=== PATIENT | male | born 1965 | race Caucasian/White ===

== ENCOUNTER 2019-04-29 10:41 | Outpatient (CLI) | payer OTHER ==
[~2019-04-29] VITALS: Ht 182.9 cm; Wt 106.8 kg
--- NOTE | ~2019-04-29 | HEMODYNAMI ---
PATIENT:BASHIR KIRKLAND MEDICAL RECORD: [id number] : [birth year] [id number] ADMISSION DATE: 04/29/19 Generatedon:04/29/201915:00 Patient name: BASHIR KIRKLAND Patient #: [id number] SSN: : 1965 Date of study: 04/29/2019 Page: Of Hemodynamic Procedure Report Patient Data Patient Demographics Procedure consent was obtained First Name: BASHIR Gender: Male Last Name: ISAEL : 1965 Patient #: [id number] Age: 53 year(s) Race: Additional ID: [id number] Contact details Address: [address] [place] [address] State: [place] City: [place] Zip code: [address] Past Medical History Allergies: No known allergies Admission Admission Data Admission Date: 04/29/2019 Admission Time: 10:41 Arrival Date: 04/29/2019 Arrival Time: 0:00 Admit Source: Other Insurance Payor: Private health insurance [facility] #: [id number] Lab Results Lab Result Date: 04/29/2019 Lab Result Time: 11:10 Biochemistry Name Units Result Min Max BUN mg/dl 14 --(--*-)-- 7 18 Creatinine mg/dl 1.1 --(--*-)-- 0.6 1.3 CBC Name Units Result Min Max Hematocrit % 45 --(*---)-- 42 54 Hemoglobin g/dl 15.5 --(-*--)-- 13.5 17.5 Procedure Procedure Types Cath Procedure Diagnostic Procedure C LH w/Coronaries Sedation Charges Moderate Sedation up to 15 minutes Procedure Description Procedure Date Procedure Date: 04/29/2019 Procedure Start Time: 14:35 Procedure End Time: 14:59 Procedure Staff Name Function Francis Gaitan MD Performing Physician Kody Arevalo RT Monitor Magaly Wells RT Scrub Dina Colon RN Nurse Indication Abnormal ECG Procedure Data Cath Procedure Fluoroscopy Diagnostic fluoroscopy Total fluoroscopy Time: 2.7 time: 2.7 min min Diagnostic fluoroscopy Total fluoroscopy dose: 801 dose: 801 mGy mGy Contrast Material Contrast Material Type Amount (ml) Isovue 300 57 Entry Location Entry Primary Successful Side Size Upsize Upsize Entry Closure Martino ccessful Closure Location (Fr) 1 (Fr) 2 (Fr) Remarks Device Remarks Radial Right 6 Fr Mechanical artery Short Compression Estimated blood loss: 10 ml Diagnostic catheters Device Type Used For End Catheter Placement DIAGNOSTIC Samir 110cm Procedure 5Fr catheter ([id number]) DIAGNOSTIC [place] 110cm 5 Procedure Fr catheter ([id number]) Procedure Complications No complications Procedure Medications Medication Administration Route Dosage Oxygen etCO2 Nasal cannula 2 l/min Lidocaine 2% added to field 20 Heparin Flush Bag added to field 2 bags (1000units/500ml NS) 0.9% NaCl I.V. 100 ml/hr Radial Cocktail I.A. 1 syringe (Verapamil 2mg/Nitro 400mcg/Heparin 1500units) Versed I.V. 2 mg Fentanyl I.V. 100 mcg Versed I.V. 2 mg Hemodynamics Rest HGB: 15.5 (g/dl) Heart Rate: 44 (bpm) Pressure Samples Time Site Value (mmHg) Purpose Heart Use Rate(bpm) 14:42 LV 121/-3,14 Snapshot 57 Gradients Valve Time Site Site Mean SEP/DFP Peak To Heart Use 1 2 (mmHg) (sec/min) Peak Rate (mmHg) (bpm) Aortic 14:43 LV AO 35 Snapshots Pre Cath Intra NCS Post Cath Vital Signs Time Heart Resp SPO2 etCO2 NIBP (mmHg) Rhythm Pain Sedation Rate (ipm) (%) (mmHg) Status Level (bpm) 14:26:01 53 13 95 35.1 135/95(109) NSR 0 (11) 10(A) , No pain 14:31:39 58 10 97 26.9 116/70(84) NSR 0 (11) 10(A) , No pain 14:36:38 54 11 97 31.4 124/82(0) NSR 0 (11) 10(A) , No pain 14:41:12 55 12 96 34.4 132/75(108) NSR 0 (11) 10(A) , No pain 14:46:11 61 14 94 38.1 128/74(0) NSR 0 (11) 10(A) , No pain 14:51:11 58 11 95 24.6 Auto NIBP NSR 0 (11) 10(A) off , No pain 14:56:10 52 18 97 35.9 139/72(0) NSR 0 (11) 10(A) , No pain 14:57:29 55 15 95 27.6 128/81(95) NSR 0 (11) 10(A) , No pain Medications Time Medication Route Dose Verified Delivered Reason Notes Effectiveness by by 14:24:52 Oxygen etCO2 2 l/min Francis Buffie used for Nasal Arnie Colon RN procedure cannula 14:25:43 Lidocaine 2% added 20ml Francis Francis for local to vial Arnie Gaitan MD anesthetic field 14:25:51 Heparin Flush added 2 bags Francis Francis used for Bag to Arnie Gaitan MD procedure (1000units/500ml field NS) 14:26:06 0.9% NaCl I.V. 100 Francis Buffie Per ml/hr Arnie Colon RN physician 14:27:05 Radial Cocktail I.A. 1 Francis Buffie for (Verapamil syringe Arnie Colon RN vasodilation 2mg/Nitro 400mcg/Heparin 1500units) 14:30:34 Versed I.V. 2 mg Francis Buffie for sedation Arnie Colon RN 14:30:41 Fentanyl I.V. 100 mcg Francis Buffie for sedation Arnie Colon RN 14:44:58 Versed I.V. 2 mg Francis Buffie for sedation Arnie Colon RN Procedure Log Time Note 14:00:46 Magaly Wells RT(R) sent for patient. Start room use. 14:05:17 Informed consent obtained and on chart 14:10:50 Admit Source: Other 14:10:58 Insurance Payor : Private health insurance 14:11:19 Arrival Date: 04/29/2019 12:00:00 AM 14:13:01 Lab Result : Hemoglobin 15.5 g/dl 14:13:01 Lab Result : Hematocrit 45 % 14:13:01 Lab Result : BUN 14 mg/dl 14:13:01 Lab Result : Creatinine 1.1 mg/dl 14:13:26 Diagnostic Cath Status : Elective 14:13:29 Indication : Abnormal ECG 14:13:38 ACC Patient presents with Stable Angina CCS Anginal Class 3--Marked limitation of physical activity, angina occurs with ordinary activity.. 14:13:42 ACCPatient has been prescribed/administered the following anti-anginal medication within the last 2 weeks: None 14:13:45 Procedure Status Elective Heart Cath (OP). 14::51 Time tracking: Regular hours (M-F 7:00 - 5:00) 14:13:55 Plan of Care:Hemodynamics will remain stable., Cardiac rhythm will remain stable., Comfort level will be maintained., Respiratory function will remain adequate., Patient/ family verbilizes understanding of procedure., Procedure tolerated without complication., Recovers from procedure without complications.. 14:13:59 Patient received from Pre/Post Procedure Room to CCL 1 Alert and oriented. Tansferred to table in Supine position. 14:14:00 Warm blankets applied, and kobe hugger turned on for patient comfort. 14:14:00 Correct patient and procedure confirmed by team. 14:14:01 ECG and BP/O2 sat monitors applied to patient. 14:14:11 H&P Date Dictated: 04/10/2019 Within 30 days and on chart., H&P Addendum completed by physician on day of procedure. (MUST COMPLETE FOR ALL OUTPATIENTS). 14:14:13 Pre-procedure instructions explained to patient. 14:14:13 Pre-op teaching completed and patient verbalized understanding. 14:14:14 Family in waiting room. 14:14:16 Patient NPO since Breakfast. 14:14:21 Patient allergic to No known allergies 14:24:52 Oxygen 2 l/min etCO2 Nasal cannula was administered by Dina Colon RN; used for procedure; 14:24:54 Vital chart was started 14:25:43 Lidocaine 2% 20ml vial added to field was administered by Francis Gaitan MD; for local anesthetic; 14:25:47 Baseline sample Acquired. 14:25:51 Heparin Flush Bag (1000units/500ml NS) 2 bags added to field was administered by Francis Gaitan MD; used for procedure; 14::55 Baseline sample Acquired. 14::59 Rhythm: sinus rhythm 14:26:00 Full Disclosure recording started 14:26:03 Is the patient allergic to Iodine/contrast media? No. 14:26:04 Is patient on blood thinner?No 14:26:05 Patient diabetic? No. 14:26:06 0.9% NaCl 100 ml/hr I.V. was administered by Dina Colon RN; Per physician; 14:26:10 Previous problem with sedation/anesthesia? No ? 14:26:12 Snore? Yes 14:26:13 Sleep apnea? Yes 14:26:14 Deviated septum? No 14:26:15 Opens mouth fully? Yes 14:26:15 Sticks out tongue? Yes 14:26:17 Airway obstruction? No ? 14:26:20 Dentures? Yes bottom out 14:26:55 Pre procedure: right dorsailis pedis pulse 2+ Normal; easily identifiable; not easily obliterated 14:26:59 Patient pain scale 0/10 ?. 14:27:05 Radial Cocktail (Verapamil 2mg/Nitro 400mcg/Heparin 1500units) 1 syringe I.A. was administered by Dina Colon RN; for vasodilation; 14:27:47 IV patent on arrival in left antecubital with 0.9% NaCl at [facility]. 14:28:14 Lab results completed and on chart. 14:28:19 Right Radial & Right Groin area was prepped with chlora-prep and draped in sterile fashion 14:28:20 Alarms reviewed by R. N. 14:28:21 Sharps counted by scrub and verified by R.N. 14:28:23 Use device set Radial Dx or PCI 14:28:24 ACIST Syringe (67138) opened to sterile field. 14:28:24 Medline Cath Pack ([id number]) opened to sterile field. 14:28:25 Bag Decanter (2002) opened to sterile field. 14:28:25 ACIST Hand Control (13406) opened to sterile field. 14:28:25 ACIST Manifold (60476) opened to sterile field. 14:28:26 Tegaderm 4 x 4 (1626W) opened to sterile field. 14:28:26 MBrace Wrist Support ([id number]) opened to sterile field. 14:28:28 EMERALD Guide Wire (190-086) opened to sterile field. 14:28:28 SHEATH 6FR RAIN (9423262) opened to sterile field. 14:28:35 Physician arrived 14:28:35 Final Timeout: patient, procedure, and site verified with staff and physician. All members of the team are in agreement. 14:28:37 Right Radial & Right Groin site verified by team. 14:28:44 Fire Safety Assessment: A--An alcohol-based skin anteseptic being used preoperatively., C--Open oxygen or nitrous oxide is being used., D--An ESU, laser, or fiber-optic light is being used. 14:28:47 Physical assessment completed. ASA score P 2 - A patient with mild systemic disease as per Francis Gaitan MD. 14:29:11 2) 60-89 Mildly reduced kidney function, and other findings (as for stage 1) point to kidney disease. 14:30:12 Maximum allowable contrast dose (3.7 X eGFR X 0.75)208 ml. 14:30:14 Sedation plan: IV Moderate Sedation Medication:Versed, Fentanyl 14:30:34 Versed 2 mg I.V. was administered by Dina Colon RN; for sedation; 14:30:41 Fentanyl 100 mcg I.V. was administered by Dina Colon RN; for sedation; 14:33:15 NEEDLE Cook 21G 4cm Radial (I78194) opened to sterile field. 14:33:28 Zero performed for pressure channel P1 14:35:18 Procedure started. 14:35:23 Local anesthetic to right radial artery with Lidocaine 2% by Francis Gaitan MD.INITIAL ACCESS ONLY 14:35:32 A 6 Fr Short sheath was inserted into the Right Radial artery 14:37:45 Zero performed for pressure channel P1 14:41:17 A DIAGNOSTIC Samir 110cm 5Fr catheter (695206) was advanced over the wire and used for Procedure. 14:41:59 LV hemodynamics recorded. 14:42:32 LV gram done using SRINIVASAN 14:42:35 Injector settings: Ml/sec: 5, Volume: 15, 14:42:53 EF : 50 % 14:44:01 RCA angiography performed. 14:44:04 Catheter exchanged over wire. 14:44:12 A DIAGNOSTIC [place] 110cm 5 Fr catheter (009433) was advanced over the wire and used for Procedure. 14:44:58 Versed 2 mg I.V. was administered by Dina Colon RN; for sedation; 14:45:27 ACCDominant side:Right 14:46:01 LCA angiography performed. 14:54:53 Catheter removed. 14:55:06 ZEPHYR REGULAR TR BAND (852945) opened to sterile field. 14:55:25 Sheath removed intact; hemostasis achieved with Mechanical Compression to the Right Radial artery. 14:56:37 Procedure ended.(Physican Out) 14:57:05 Fluoroscopy time 02.70 minutes. 14:57:08 Fluoroscopy dose: 801 mGy 14:57:08 Flurop Dose total: 801 14:57:16 Dose Area Product 67334 mGy/cm. 14:57:22 Contrast amount:Isovue 300 57ml. 14:57:24 Maximum allowable dose exceeded? No. 14:57:26 Sharps counted by scrub and verified by R.N. 14:57:30 [place] band inflated with 12cc of air. 14:57:31 Insertion/operative site no bleeding no hematoma. 14:57:43 Post right radial artery:stable, soft, clean and dry 14:57:46 Post Procedure Pulses reassessed and unchanged 14:57:50 Post-procedure physical assessment completed. ASA score P 2 - A patient with mild systemic disease as per Francis Gaitan MD. 14:57:53 Post procedure rhythm: unchanged. 14:58:02 Estimated blood loss: 10 ml 14:58:03 Post procedure instruction explained to patient.Patient verbalizes understanding. 14:58:04 Patient needs reinforcement of post procedure teaching. 14:58:26 Procedure type changed to Cath procedure, Diagnostic procedure, LHC, LHC w/Coronaries, Sedation Charges, Moderate Sedation up to 15 minutes 14:58:54 Procedure and supply charges have been captured, reviewed, submitted and are correct. 14:58:57 Procedure Complication : No complications 14:58:59 Vital chart was stopped 14:59:00 See physician's report for complete and final results. 14:59:01 Report given to Pre/Post Procedure Room. 14:59:03 Patient transfered to Pre/Post Procedure Room with Stretcher. 14:59:07 Procedure ended. 14:59:07 Full Disclosure recording stopped 14:59:16 End room use (Document Last) Device Usage Item Name Manufacture Quantity Catalog Hospital Part Current Minima l Lot# / Number Charge Number Stock Stock Serial# Code ACIST Acist 1 85741 313026 252450 445393 20 Syringe [employer] (84288) Quantifeed Inc Medline Medline 1 [id number] 720102 40661 001921 5 Cath Pack ([id number]) Bag Microtek 1 758181 54579 536481 5 Decanter Medical Inc. () ACIST Hand Acist 1 74748 572400 736842 598736 5 Control Medical (66793) Systems Inc ACIST Acist 1 31410 748240 179500 329761 5 Manifold Medical (88012) Systems Inc Tegaderm 4 3M 1 1626W 542564 283186 686816 5 x 4 (1626W) MBrace Advanced 1 140-0250-00 410069 33947 753071 5 Wrist Vascular Support Dynamics ([id number]) EMERALD Cardinal 1 642-838 928190 887939 680321 5 Guide Wire Health (115-591) SHEATH 6FR Cardinal 1 5304738 244625 9778893 285567 5 [facility] Health (6294575) NEEDLE Cook Cook Medical 1 D01406 486061 405036 611873 5 21G 4cm Radial (T44054) DIAGNOSTIC Terumo 1 40-5023 280478 132912 330955 5 Samir 110cm 5Fr catheter (916329) DIAGNOSTIC Terumo 1 40-5013 582500 755880 247230 5 [place] 110cm 5 Fr catheter (641730) ZEPHYR Cardinal 1 157670 893384 9537691 618467 5 REGULAR TR Health BAND (399088) Signature Audit [place] Stage Time Signature Unsigned Intra-Procedure 04/29/2019 Kody Arevalo 3:00:11 PM RT(R) Signatures Performing Physician : Signature : Francis Gaitan MD Date : Time : Monitor : Kody Arevalo RT Signature : Date : Time : Nurse : Dina Colon RN Signature : Date : Time : [address] [address] [place] [address]
[2019-04-29] MEDS ORDERED: CO Q-10200 MG PO (10:57)
[2019-04-29] MEDS ORDERED: CRESTOR20 MG PO (10:57)
[2019-04-29] MEDS ORDERED: PEPCID AC20 MG PO (10:58)
[2019-04-29 11:08] VITALS: BP 159/84; Ht 182.9 cm; Wt 106.8 kg
[2019-04-29 11:22] LABS: HEMOGLOBIN 15.5 g/dL (13.5-17.5); LYMPHOCYTES 29.3 % (15-50); MCH 32.2 pg (26.0-34.0); MCHC 34.4 g/dL (31.0-37.0); MCV 93.6 fL (80.0-100.0); MEAN PLATELET VOLUME 10.2 fL (7.4-10.4); NEUTROPHILS 61.8 % (40-80); PLATELET COUNT 195 10x3/uL (130-400); RBC 4.81 10x6/uL (4.20-6.10); RDW 12.8 % (11.5-14.5); WBC 9.4 10x3/uL (4.8-10.8)
[2019-04-29 11:49] LABS: ALT (SGPT) 32 U/L (10-68); CALC OSMOLALITY 276 mosm/kg (275-300); CALCIUM 8.8 mg/dL (8.5-10.1); CARBON DIOXIDE 28.3 mmol/L (21.0-32.0); CHLORIDE - SERUM 105 mmol/L (98-107); CHOL - HDL RATIO 3.5 ratio (2.3-4.9); CHOLESTEROL, TOTAL 152 mg/dL (0-200); CREATININE - SERUM 1.1 mg/dL (0.6-1.3); GLUCOSE 98 mg/dL (74-106); HDL CHOLESTEROL 44 mg/dL (32-96); LDL CHOLESTEROL 85 mg/dL (0-100); LDL-HDL RATIO 1.9 ratio (1.5-3.5); SODIUM 138 mmol/L (136-145); TRIGLYCERIDE 118 mg/dL (30-200); UREA NITROGEN 14 mg/dL (7-18); eGFR NON AFRICAN AMERICAN 75 mL/min (90-120)
--- NOTE | 2019-04-29 15:08 | NUR ---
PT ARRIVED BY STRETCHER. PLACED ON MONITORS. ASSESSMENT COMPLETED. VSS. PT'S FAMILY AT BEDSIDE.
--- NOTE | 2019-04-29 15:20 | NUR ---
DR. BARRIOS AT BEDSIDE. SPEAKING WITH PT AND PT'S FAMILY. THEY VOICED UNDERSTANDING. RIGHT WRIST Z BAND IN PLACE. NO BLEEDING/HEMATOMA NOTED.
--- NOTE | 2019-04-29 15:50 | NUR ---
RIGHT WRIST Z BAND IN PLACE. NO BLEEDING/HEMATOMA NOTED. VSS. PT SITTING UP. DENIES PAIN/NAUSEA. SET UP WITH SANDWICH TRAY AND DRINK. FAMILY AT BEDSIDE.
--- NOTE | 2019-04-29 16:30 | NUR ---
3cc OF AIR REMOVED FROM RIGHT RADIAL BAND. NO BLEEDING/HEMATOMA NOTED. VSS. FAMILY AT BEDSIDE CALL LIGHT WITHIN REACH. CAP REFILL TO RIGHT HAND < 3 SECS.
--- NOTE | 2019-04-29 16:45 | NUR ---
3cc OF AIR REMOVED FROM Z BAND. TOLERATED WELL. NO BLEEDING/HEMATOMA NOTED.
--- NOTE | 2019-04-29 17:00 | NUR ---
3cc OF AIR REMOVED FROM Z BAND. NO BLEEDING/HEMATOMA NOTED.
--- NOTE | 2019-04-29 17:10 | NUR ---
Z BAND REMOVED. DRESSING APPLIED. NO BLEEDING/HEMATOMA NOTED. PIV D/C'D WITH CATH TIP INTACT. PT TOLERATED WELL. INSTRUCTED TO GET UP AND DRESSED. FAMILY AT BEDSIDE TO ASSIST.
--- NOTE | 2019-04-29 17:22 | NUR ---
DISCUSSED DISCHARGE INSTRUCTIONS WITH PT AND DIRECTIONS FOR FOLLOW UP WITH DR. MAZARIEGOS TOMORROW AT 15:15. GAVE THEM INFO BOOK ON OPEN HEART SURGERY ALONG WITH A CARD FOR DR. MAZARIEGOS'S OFFICE INFORMATION. THEY VOICED UNDERSTANDING.
--- NOTE | 2019-04-29 17:25 | NUR ---
RIGHT WRIST DRESSING C/D/I. NO S/S OF HEMATOMA NOTED. PT TAKEN OUT TO VEHICLE BY WHEELCHAIR. NO S/S OF DISTRESS NOTED. ALL BELONGINGS AND PAPEROWORK IN HAND.
== END 2019-04-29 17:25 | disposition home or self-care (01) ==
LOC: D.CATH 10:41
PROVIDERS: ATTEND Internal Medicine Cardiovascular Disease
DX: I25.110 Atherosclerotic heart disease of native coronary artery with unstable angina pectoris (principal)

== ENCOUNTER 2019-06-24 10:08 | Inpatient (IN) | payer OTHER ==
[~2019-06-24] VITALS: Ht 182.9 cm; Wt 107.9 kg
[~2019-06-24 10:08] MED LIST: CO Q-10200 MG PO; CRESTOR20 MG PO; PEPCID AC20 MG PO
[2019-06-24] MEDS ORDERED: BAYER CHEWABLE81 MG PO (11:26)
[2019-06-24 12:35] LABS: BASOPHILS 0.3 % (0-2); EOSINOPHILS 1.7 % (0-7); HEMATOCRIT 47.9 % (42.0-54.0); HEMOGLOBIN 16.1 g/dL (13.5-17.5); IMMATURE GRANULOCYTES 0.1 % (0-5); LYMPHOCYTES 31.3 % (15-50); MCH 32.7 pg (26.0-34.0); MCHC 33.6 g/dL (31.0-37.0); MCV 97.4 fL (80.0-100.0); MEAN PLATELET VOLUME 10.9 fL (7.4-10.4); MONOCYTES 8.7 % (2-11); NEUTROPHILS 57.9 % (40-80); RBC 4.92 10x6/uL (4.20-6.10); RDW 13.2 % (11.5-14.5); WBC 8.8 10x3/uL (4.8-10.8)
[2019-06-24 12:42] LABS: PLATELET COUNT 236 10x3/uL (130-400)
[2019-06-24 12:47] LABS: APPEARANCE CLEAR (CLEAR); BILIRUBIN NEGATIVE (NEGATIVE); COLOR YELLOW (YELLOW); GLUCOSE NEGATIVE (NEGATIVE); KETONE NEGATIVE (NEGATIVE); NITRITE NEGATIVE (NEGATIVE); PROTEIN NEGATIVE (NEGATIVE); SPECIFIC GRAVITY 1.015 (1.005-1.020)
[2019-06-24 12:56] LABS: APTT 28.5 SECONDS (22.8-39.4)
[2019-06-24 12:57] LABS: ALBUMIN 3.9 g/dL (3.4-5.0); ANION GAP 11.3 mmol/L (8-16); BILIRUBIN - TOTAL 0.47 mg/dL (0.2-1.3); CALCIUM 9.2 mg/dL (8.5-10.1); CARBON DIOXIDE 28.9 mmol/L (21.0-32.0); CREATININE - SERUM 1.2 mg/dL (0.6-1.3); POTASSIUM - SERUM 4.2 mmol/L (3.5-5.1); PROTEIN - SERUM 7.8 g/dL (6.4-8.2); T4 THYROXIN - FREE 0.87 ng/dL (0.76-1.46); THYROID STIMULATING HORMONE 3.78 uIU/mL (0.36-3.74); URIC ACID 7.1 mg/dL (2.6-7.2)
[2019-06-24 13:12] LABS: INR 0.93 (0.85-1.17)
[2019-06-25] VITALS (47 sets, daily range): BP systolic 102–131; BP diastolic 44–77; BMI 31.4; BMI 33.4
--- NOTE | 2019-06-25 12:45 | NUR ---
PT ARRIVED IN THE UNIT. HOOKED TO ICU MONITORS. PT SEDATED AND ON THE VENTILATOR. 8.0 ETT 24 AT THE LIP. RIGHT IJ CORDIS NOTED. SEE IV FLOW SHEET FOR GTTS. MIDSTERNAL INCISION NOTED C/D/I. SUBSTERNAL DRESSING C/D/I WITH 2 CT'S NOTED CONNECTED TO 20 OF H2O SUCTION WITH NO AIR LEAK NOTED. LEFT SUBSTERNAL CHARLOTTE DRAIN NOTED COMPRESSED. ALL DRAINS HAVE BLOODY DRAINAGE. R RADIAL JOSEP NOTED WITH THE WITH WRIST PROTECTOR ON AND IN PLACE. CAP REFILL <3 SECONDS. TPM WIRES HOOKED TO PACEMAKER BUT NOT TURNED ON PER DR MAZARIEGOS. FC NOTED WITH CLEAR, YELLOW URINE. RLE HARVEST NOTED WITH KOBAN FROM ANKLE TO GROIN. PULSES PALPABLE. VSS AT THIS TIME. CALL LIGHT IN REACH. WILL CONT POC.
--- NOTE | 2019-06-25 13:00 | NUR ---
PIECE HAND SHOT CXR. DR MAZARIEGOS REVIEWED IT. NO NEW ORDERS AT THIS TIME.
--- NOTE | 2019-06-25 14:32 | NUR ---
PT EASILY AROUSABLE AND FOLLOWS COMMANDS BUT WILL ALMOST FALL BACK TO SLEEP. VSS. WILL CONT POC.
--- NOTE | 2019-06-25 16:25 | NUR ---
PT CHANGED TO SPONT PER RT. PT RESP RATE 40 TITAL VOL 75-100. PER RT CHANGED BACK TO SIMV AND DR MAZARIEGOS NOTIFIED. SEDATE THE PT WITH DIPROVAN AND CONSULT PULMONARY. DR HOOD CALLED AND MADE AWARE OF THE CONSULT.
--- NOTE | 2019-06-25 16:45 | NUR ---
DR HOOD AT THE PTS BEDSIDE WITH THE FAMILY. REST THE PT OVER NIGHT AND WEEN IN THE AM IF STABLE.
--- NOTE | 2019-06-25 18:38 | NUR ---
PT VSS. RESTING WITH EYES CLOSED. CALL LIGHT IN REACH. WILL CONT POC.
--- NOTE | 2019-06-25 19:32 | NUR ---
PT RECEIVED SEDATUDED ON VENT A/C RATE 14, TV 650, O2 40%, PEEP 5. RIGHT IJ WITH PLASMALYTE 100, DIPROVAN 20MCG/KG/MIN, AMIODARONE 0.5MG/MIN, ZINACEF 11.4ML/HR. PT SEDATED AND AWAKENS TO VERBAL STIMULI, TOLERATING WELL. VSS. CHARLOTTE DRAIN COMPRESSED WITH BLOODY DRAINAGED NOTE. CHEST TUBE X2 PATENT, MCDOWELL PATENT WITH WAYNE URINE. DRESSINGS TO MIDSTERNAL, SUBSTERNAL, AND RIGHT LEG C/D/I. WILL CONTINUE TO OBSERVE.
--- NOTE | 2019-06-25 21:43 | NUR ---
PT CONTINUES SEDATION, OPENS EYES UPON VERBAL STIMULI. NO S/S OF DISTRESS. VSS. GOOD URINARY OUTPUT AT THIS TIME. CHEST TUBES TO SUCTION WITHOUT LEAK. NO EXCESSIVE DRAINAGE NOTED. CHARLOTTE DRAIN COMPRESSED. WILL CONTINUE TO OBSERVE.
--- NOTE | 2019-06-25 23:03 | NUR ---
PT SEDATED OPENS EYE ON OWN AT TIMES. NO S/S OF DISTRESS. MCDOWELL WITH GOOD OUTPUT. CHEST TUBES DRAINING BLOODY DRAINAGE NOT EXCESSIVE. VSS. NO CHANGES TO VENT. WILL CONTINUE TO OBSERVE.
[2019-06-26] VITALS (47 sets, daily range): BP systolic 109–139; BP diastolic 56–76; Ht 182.9 cm; Wt 107.9 kg
--- NOTE | 2019-06-26 01:50 | NUR ---
SUBSTERNAL DRESSING CHANGED. TPM X2 CONNECTED TO TPM, TURNED OFF, BIOPATCHED TO WIRES. NO BLEEDING NOTED. WILL CONTINUE TO OBSERVE. REMAINS ON VENT WITH NO CHANGES TO SETTINGS. PT SEDATED, BUT OPENS EYES AND ANSWERS QUESTIONS BY NODDING HEAD.
--- NOTE | 2019-06-26 03:25 | NUR ---
PT SEDATED, OPENS EYES TO STIMULI. ANSWERS QUESTIONS BY NODDING HEAD. VSS. NO S/S OF DISTRESS. WILL CONTINUE TO OBSERVE.
--- NOTE | 2019-06-26 05:17 | NUR ---
BLOOD DRAWN AND SENT TO LAB.
[2019-06-26 05:28] LABS: BASOPHILS 0.1 % (0-2); EOSINOPHILS 0.1 % (0-7); HEMATOCRIT 39.2 % (42.0-54.0); IMMATURE GRANULOCYTES 0.3 % (0-5); LYMPHOCYTES 11.2 % (15-50); MCHC 32.7 g/dL (31.0-37.0); MONOCYTES 13.5 % (2-11); NEUTROPHILS 74.8 % (40-80); RDW 13.8 % (11.5-14.5)
[2019-06-26 05:30] LABS: HEMOGLOBIN 12.8 g/dL (13.5-17.5); PLATELET COUNT 184 10x3/uL (130-400); WBC 15.5 10x3/uL (4.8-10.8)
--- NOTE | 2019-06-26 05:34 | NUR ---
PT BEING MORE ALERT PULLING AGAINST RESTRAINTS AND SOUNDING VENT ALARMS. DIPROVAN RATE INCREASE, SEE FLOW SHEET. WILL CONTINUE TO OBSERVE.
[2019-06-26 05:46] LABS: ALKALINE PHOSPHATASE 46 U/L (46-116); CALC OSMOLALITY 283 mosm/kg (275-300); CALCIUM 7.3 mg/dL (8.5-10.1); CARBON DIOXIDE 27.8 mmol/L (21.0-32.0); CHLORIDE - SERUM 109 mmol/L (98-107); GLUCOSE 129 mg/dL (74-106); PHOSPHOROUS 3.4 mg/dL (2.5-4.9); POTASSIUM - SERUM 4.3 mmol/L (3.5-5.1); SODIUM 141 mmol/L (136-145); UREA NITROGEN 14 mg/dL (7-18); eGFR NON AFRICAN AMERICAN 83 mL/min (90-120)
[2019-06-26 05:55] LABS: ALBUMIN 2.7 g/dL (3.4-5.0); ALT (SGPT) 25 U/L (10-68); PROTEIN - SERUM 5.5 g/dL (6.4-8.2)
--- NOTE | 2019-06-26 08:37 | NUR ---
0730: DR. MAZARIEGOS HERE. CONDITION UPDATE GIVEN 0735: OBINNA KOVACS. 0745: PLACED ON SIMV 4 0800: FAMILY AT BEDSIDE.
--- NOTE | 2019-06-26 09:18 | NUR ---
PLACED ON CPAP.
--- NOTE | 2019-06-26 11:39 | NUR ---
1015: EXTUBATED AND PLACED ON O2 VIA NC @ 6LPM. 1045: UP TO CHAIR. 1125: R RADIAL ARTERIAL LINE DC'D. MANUAL PRESSURE HELD X 5 MIN. DRESSED WITH 2X2 AND TEGADERM.
--- NOTE | 2019-06-26 15:10 | OP ---
PATIENT NAME: BASHIR KIRKLAND MEDICAL RECORD: [id number] :69 LOCATION[id number] ADMISSION DATE:06/25/19 SURGEON: MASSIMO MAZARIEGOS MD DATE OF OPERATION: 06/25/2019 SURGEON: Massimo Mazariegos MD SOCIAL WORKER MASTERS: None. PROCEDURE PERFORMED: Coronary bypass graft times 3 (left internal mammary to LAD, reverse saphenous vein graft from aorta to diagonal and aorta to right coronary artery). PREOPERATIVE DIAGNOSIS: Coronary artery disease. POSTOPERATIVE DIAGNOSIS: Coronary artery disease. ANESTHESIA: General endotracheal anesthesia. ESTIMATED BLOOD LOSS: Total cardiopulmonary bypass with Cell Saver retransfusion. COMPLICATIONS: None. SPECIMENS: None. CONDITION: Stable. DISPOSITION: CV ICU. OPERATIVE FINDINGS: 1. Good quality greater saphenous vein, but the right mid thigh had a large varicosity, so a smaller caliber portion was taken with bridging incisions also from the right lower leg for the diagonal graft. 2. Good quality left internal mammary artery. The LAD was diffusely diseased 2.0-mm vessel. 3. First diagonal 1.5-mm vessel with moderate disease. 4. Right coronary artery 2.5-mm vessel with severe disease. 5. Dilated right ventricle, transesophageal echocardiography with normal contractility. No significant valvular stenosis or regurgitation. DESCRIPTION OF PROCEDURE: The patient was brought to the operating suite. General anesthesia was obtained. The patient was prepped and draped. Greater saphenous vein harvested from the right lower leg and right thigh using bridging incisions. Side branches were divided with clips. The vessel was ligated proximally and distally and removed. Side branches were tied and then sites were oversewn. Leg was later closed in 2 layers including Dermabond on the skin. Median sternotomy incision was made. Subcutaneous tissue was divided by electrocautery. The sternum was divided with a saw. The left hemisternum was elevated. Left lower cavity was entered. Left internal mammary was taken down as a pedicle graft. Sternal retractor was placed. Pericardium was opened. Heparin was given. OPERATIVE REPORT [id number] BASHIR KIRKLANDN Aorta was cannulated. Dual stage venous cannula was inserted. The internal mammary clipped distally and made ready for anastomosis. Activated clotting time was appropriately elevated. The patient was placed on cardiopulmonary bypass. Sites for distal anastomosis were selected. Antegrade cardioplegic cannula was inserted. The patient's temperature was allowed to drift downwardly. Crossclamp was placed. Cardioplegia was given antegrade and this was repeated at 20 intervals including down the completed vein grafts. Distal anastomoses were performed in standard technique. Proximal anastomosis with single cross-clamp technique. Aortic root was de-aired with the patient in Trendelenburg position by removing the cross clamp, venting the root, tying the proximal anastomoses, deairing the vein graft and restoring flow. A single defibrillation. Then, proximal and distal anastomosis inspected for bleeding. A single 6-0 was in the proximal anastomotic site. The patient resumed a spontaneous rhythm, fully rewarmed, weaned from cardiopulmonary bypass and stable. The patient was decannulated. The cannula sites were oversewn. Protamine was given. Thorough irrigation was undertaken. The graft lay appropriately. Hemostasis was assured. A drain was placed in the mediastinum and left pleural cavity. Atrial and ventricular pacing wires were placed. Pericardial fat was loosely reapproximated in the midline. Left chest was evacuated and irrigated. The internal mammary harvest site inspected for bleeding. Sternum was closed with wires. Fascia was closed. Subcutaneous tissue was closed. Skin was closed. Dermabond was placed. The needle and sponge counts reported correct. The patient was taken to ICU in stable condition. TRANSINT:[id number] Voice Confirmation ID: [id number] DOCUMENT ID: [id number] MASSIMO MAZARIEGOS MD at 1510 CC: NORMA BARRIOS M.D. and LEONARDO WINSTON MD [id number] DICTATION DATE: 06/25/19 1259 DIGITAL COORDINATOR: 06/25/19 1328 ADM IN [facility] [address] [id number]
--- NOTE | 2019-06-26 19:20 | NUR ---
PT IN BED WITH EYES OPEN. COMPLAINS OF PAIN WITH PRN PAIN MEDICATION GIVEN PER OCT. CHEST TUBES X2 PATENT. MCDOWELL WITH WAYNE URINE. CHARLOTTE DRAIN COMPRESSED. FRESH DRINK PROVIDED. CALL LIGHT IN DRINK PROVIDED. WILL CONTINUE TO OBSERVE.
--- NOTE | 2019-06-26 20:13 | NUR ---
AT BEDSIDE AT THIS TIME.
--- NOTE | 2019-06-26 20:49 | NUR ---
PT SPO2 DECREASED TO 88, PT ENCOURAGED TO COUGH AND TAKE DEEP BREATHS THROUGH NOSE, WITH LITTLE INCREASE. RT CALLED AND N/C CHANGED TO HIGH FLOW AT 11LPM AT THIS TIME WITH SPO2 AT 92%. WILL CONTINUE TO OBSERVE.
--- NOTE | 2019-06-26 21:20 | NUR ---
PT REQUESTED TO GET UP TO CHAIR. ASSIST GIVEN TO CHAIR. TOLERATED WELL. WILL CONTINUE TO OBSERVE.
--- NOTE | 2019-06-26 23:04 | NUR ---
PT ASSISTED BACK TO BED, PER REQUEST. TOLERTED WELL.
[2019-06-27] VITALS (27 sets, daily range): BP systolic 116–144; BP diastolic 56–83
--- NOTE | 2019-06-27 01:41 | NUR ---
PT RESTING WITH EYES CLOSED AND CHEST RISING. VSS. EASILY AWOKEN TO VERBAL STIMULI. IS ENCOURAGED 750. NO NEEDS MADE KNOWN. CALL LIGHT IN REACH. WILL CONTINUE TO OBSERVE.
--- NOTE | 2019-06-27 04:16 | NUR ---
AT BEDSIDE. PT WITH EYES OPEN. NO NEEDS MADE KNOWN. CALL LIGHT IN REACH.
[2019-06-27 05:13] LABS: HEMATOCRIT 36.8 % (42.0-54.0); HEMOGLOBIN 11.9 g/dL (13.5-17.5); MCH 32.2 pg (26.0-34.0); MCHC 32.3 g/dL (31.0-37.0); MCV 99.5 fL (80.0-100.0); MEAN PLATELET VOLUME 10.7 fL (7.4-10.4); RBC 3.7 10x6/uL (4.20-6.10); RDW 13.8 % (11.5-14.5); WBC 18.4 10x3/uL (4.8-10.8)
[2019-06-27 05:27] LABS: ALBUMIN 2.6 g/dL (3.4-5.0); ALKALINE PHOSPHATASE 51 U/L (46-116); ALT (SGPT) 25 U/L (10-68); BILIRUBIN - TOTAL 0.94 mg/dL (0.2-1.3); CALC OSMOLALITY 281 mosm/kg (275-300); CALCIUM 7.7 mg/dL (8.5-10.1); CARBON DIOXIDE 29.7 mmol/L (21.0-32.0); CHLORIDE - SERUM 106 mmol/L (98-107); GLUCOSE 145 mg/dL (74-106); POTASSIUM - SERUM 4.2 mmol/L (3.5-5.1); PROTEIN - SERUM 5.9 g/dL (6.4-8.2); SODIUM 140 mmol/L (136-145); UREA NITROGEN 13 mg/dL (7-18); eGFR NON AFRICAN AMERICAN 83 mL/min (90-120)
--- NOTE | 2019-06-27 06:32 | NUR ---
PT UP TO CHAIR AFTER CHG BATH. COMPLETE LINEN CHANGE PROVIDED. PT TOLERATED WELL. VSS. CALL LIGHT IN REACH. WILL CONTINUE TO OBSERVE.
--- NOTE | 2019-06-27 09:43 | NUR ---
0915: JEREMIAS SMILEY'D. 919: MORPHINE 2 MG GIVEN IV PREMED FOR CHEST TUBE REMOVAL. 929: CHEST TUBES DC'D BY DR. MAZARIEGOS.
--- NOTE | 2019-06-27 19:30 | NUR ---
REPORT REC'D AND CARE ASSUMED, REC'D PT RESTING ON BIPAP AT 40% WATCHING TV, AWAKE, ALERT, AND ORIENTED, RESP RATE @ 26, RIJ CVL SALINE LOCKED, DRSG CDI, MIDSTERNAL DRSG CDI, SUBSTERNAL DRSG TO PREVIOUS CT INSERTION SITES AND EXTERNAL P/M WIRES, CDI, LEFT SUBSTERNAL [place] DRAIN COMPRESSED WITH SEROSANGUINOUS DRAINAGE, ABD SOFT, BS HYPOACTIVE, MAEE, PPP, BILAT TEDS, PPP, PT DENIES NEEDS AT THIS TIME, SR UP X 2, BED IN LOW POSITION, CALL LIGHT IN REACH.
--- NOTE | 2019-06-27 20:15 | NUR ---
AT BS FOR VISITATION, PT REQUESTING BIPAP OFF FOR VISIT, PT PLACED ON 9L HIGH FLOW CANNULA AND ASSISTED TO RECLINER PER REQUEST, WARM BLANKET PROVIDED, PT DENIES FURTHER NEEDS, CALL LIGHT IN REACH.
--- NOTE | 2019-06-27 21:03 | NUR ---
EVENING MEDS GIVEN, PT RATING PAIN "9" ON 0-10 PAIN SCALE, PERCOCET 10 GIVEN FOR PAIN, REMAINS AT BS, PT DENIES FURTHER NEEDS, REMAINS UP IN CHAIR, VSS.
--- NOTE | 2019-06-27 23:00 | NUR ---
REASSESSMENT COMPLETED, PT RESTING IN RECLINER WATCHING TV, VSS, PT DENIES NEEDS, CALL LIGHT IN REACH.
[2019-06-28] VITALS (23 sets, daily range): BP systolic 105–149; BP diastolic 43–89
--- NOTE | 2019-06-28 01:06 | NUR ---
PT REQUESTING SOMETHING FOR PAIN AND TO GO BACK TO BED, PERCOCET PROVIDED AFTER GETTING PATIENT BACK TO BED, BIPAP MASK REAPPLIED, SR UP X 2, BED IN LOW POSITION, CALL LIGHT IN REACH.
--- NOTE | 2019-06-28 03:45 | NUR ---
PT UNABLE TO SLEEP, ASSISTED UP TO RECLINER WITHOUT DIFFICULTY, URINAL EMPTIED OF 50CC [place] COLORED URINE, PT DENIES NEEDS, CALL LIGHT IN REACH.
--- NOTE | 2019-06-28 04:30 | NUR ---
RADIOLOGY IN FOR AM CXR
--- NOTE | 2019-06-28 05:15 | NUR ---
AT BS ASSISTING PT WITH CHG BATH, COMPLETE LINEN CHANGE PROVIDED, PT DENIES NEEDS, CALL LIGHT IN REACH.
[2019-06-28 07:06] LABS: BASOPHILS 0.2 % (0-2); EOSINOPHILS 1.1 % (0-7); HEMATOCRIT 34.8 % (42.0-54.0); HEMOGLOBIN 11.4 g/dL (13.5-17.5); IMMATURE GRANULOCYTES 0.4 % (0-5); LYMPHOCYTES 16.4 % (15-50); MCH 32.2 pg (26.0-34.0); MCHC 32.8 g/dL (31.0-37.0); MCV 98.3 fL (80.0-100.0); MEAN PLATELET VOLUME 10.8 fL (7.4-10.4); MONOCYTES 13.3 % (2-11); NEUTROPHILS 68.6 % (40-80); PLATELET COUNT 169 10x3/uL (130-400); RBC 3.54 10x6/uL (4.20-6.10); RDW 13.4 % (11.5-14.5); WBC 13.3 10x3/uL (4.8-10.8)
[2019-06-28 07:29] LABS: ALBUMIN 2.5 g/dL (3.4-5.0); ALKALINE PHOSPHATASE 62 U/L (46-116); ALT (SGPT) 26 U/L (10-68); BILIRUBIN - TOTAL 0.88 mg/dL (0.2-1.3); CALC OSMOLALITY 277 mosm/kg (275-300); CALCIUM 8.3 mg/dL (8.5-10.1); CHLORIDE - SERUM 104 mmol/L (98-107); CREATININE - SERUM 0.8 mg/dL (0.6-1.3); GLUCOSE 106 mg/dL (74-106); POTASSIUM - SERUM 4.2 mmol/L (3.5-5.1); PROTEIN - SERUM 6.5 g/dL (6.4-8.2); SODIUM 139 mmol/L (136-145); UREA NITROGEN 13 mg/dL (7-18); eGFR NON AFRICAN AMERICAN > 90 mL/min (90-120)
--- NOTE | 2019-06-28 19:20 | NUR ---
REPORT REC'D AND CARE ASSUMED, REC'D PT RESTING IN BED ON BIPAP AT 40%, AWAKE, ALERT, AND ORIENTED, AT BS, RIJ CVL SALINE LOCKED, MIDLINE STERNAL DRSG CDI, SUBSTERNAL DRSG TO PREVIOUS CT INSERTION SITES, DRSG CDI, ABD SOFT, BS HYPOACTIVE, RIGHT LEG HARVEST SITES, INCISIONS OPEN TO AIR, TEDS TO BILAT LEGS, PT DENIES NEEDS, BED IN LOW POSITION, CALL LIGHT IN REACH.
--- NOTE | 2019-06-28 20:20 | NUR ---
PT REQUESTING BIPAP BE REMOVED, BIPAP OFF AND PT PLACED ON 4 LITERS HIGH FLOW, REQUESTING PAIN PILL WHEN TIME FOR EVENING MEDS, REMAINS AT BS.
--- NOTE | 2019-06-28 21:00 | NUR ---
EVENING MEDS GIVEN ORDERED, PERCOCET 10 GIVEN PO FOR INCISIONAL DISCOMFORT, PT DENIES FURTHER NEEDS, WILL CONT TO MONITOR FOR CHANGES.
--- NOTE | 2019-06-28 23:15 | NUR ---
REASSESSMENT COMPLETED, PT RESTING WITH EYES CLOSED, BP STABLE, O2 SAT 96 ON 4LITER HIGH FLOW, MIDSTERNAL DRSG CDI, SUBSTERNAL DRSG CDI, RIGHT LEG HARVEST SITES OPEN TO AIR AND WELL APPROXIMATED, NO DRAINAGE NOTED, SR UP X 2, CALL LIGHT IN REACH.
[2019-06-29] VITALS (23 sets, daily range): BP systolic 90–138; BP diastolic 49–87
--- NOTE | 2019-06-29 01:00 | NUR ---
PT LAYING IN BED PLAYING ON CELL PHONE, DENIES NEEDS, VSS.
--- NOTE | 2019-06-29 03:30 | NUR ---
REASSESSMENT COMPLETED, NO CHANGES FROM PREVIOUS ASSESSMENT.
--- NOTE | 2019-06-29 04:30 | NUR ---
AT FOR VISITATION, UPDATE PROVIDED AND QUESTIONS ANSWERED.
[2019-06-29 05:55] LABS: BASOPHILS 0.2 % (0-2); EOSINOPHILS 2.4 % (0-7); HEMATOCRIT 32.9 % (42.0-54.0); HEMOGLOBIN 10.8 g/dL (13.5-17.5); IMMATURE GRANULOCYTES 0.2 % (0-5); LYMPHOCYTES 20.5 % (15-50); MCH 31.9 pg (26.0-34.0); MCHC 32.8 g/dL (31.0-37.0); MCV 97.1 fL (80.0-100.0); MEAN PLATELET VOLUME 10.7 fL (7.4-10.4); MONOCYTES 13.5 % (2-11); NEUTROPHILS 63.2 % (40-80); RBC 3.39 10x6/uL (4.20-6.10); RDW 13.3 % (11.5-14.5); WBC 10.3 10x3/uL (4.8-10.8)
[2019-06-29 05:58] LABS: PLATELET COUNT 209 10x3/uL (130-400)
[2019-06-29 06:29] LABS: ALBUMIN 2.3 g/dL (3.4-5.0); ALKALINE PHOSPHATASE 62 U/L (46-116); ALT (SGPT) 31 U/L (10-68); BILIRUBIN - TOTAL 0.77 mg/dL (0.2-1.3); CALC OSMOLALITY 279 mosm/kg (275-300); CARBON DIOXIDE 29.1 mmol/L (21.0-32.0); CHLORIDE - SERUM 104 mmol/L (98-107); CREATININE - SERUM 0.9 mg/dL (0.6-1.3); GLUCOSE 106 mg/dL (74-106); PROTEIN - SERUM 6.3 g/dL (6.4-8.2); SODIUM 139 mmol/L (136-145); eGFR NON AFRICAN AMERICAN > 90 mL/min (90-120)
[2019-06-29 06:42] LABS: UREA NITROGEN 17 mg/dL (7-18)
--- NOTE | 2019-06-29 08:00 | NUR ---
SHIFT ASSESSMENT COMPLETE. BREAKFAST TRAY HAS BEEN PROVIDED. PT DENIES ANY ADDITIONAL NEEDS. CALL LIGHT IN REACH.
--- NOTE | 2019-06-29 09:28 | TEE ---
PATIENT:BASHIR KIRKLAND MEDICAL RECORD: [id number] LOCATION:[place] [address] AGE OF PATIENT: 54 ADMISSION DATE: 06/25/19 SEX: M REFERRING PHYSICIAN: INTERPRETING PHYSICIAN: RANJITH HOLLIS MD TRANSESOPHAGEAL ECHOCARDIOGRAM Date: 06/25/19 STEVEN CHARGE Y INDICATIONS: CABG PREMEDICATIONS: PATIENT'S RESPONSE PROCEDURE DOPPLER MEASUREMENTS: LVIT LA 4.3 PA RA LVOT RVOT Asc. Ao AV Gradient Peak AV Mean AV Area MV Gradient Peak MV Mean MV Area INTERPRETATION: Doppler: 2-D: LVD 5.5 LVS 3.9 COLOR FLOW DOPPLER NO REGURG NORMAL SALINE STUDY: MISCELLANOUS: DIAGNOSIS: PLAN: Musical Performer:1 Dr. Hollis Truck Driving Instructor: Dennise DORSEY COMMENTS: DELILAH/SOPHIE PATIENT DATE OF SERVICE: 06/25/2019 PROCEDURE: Transesophageal echo evaluation of valvular structures during bypass surgery. 1. Left ventricular chamber size is within normal limits. Left ventricular systolic function is normal at 55%. 2. Left atrium, right atrium, and right ventricle chamber sizes are within normal limits. TRANSESOPHAGEAL ECHOCARDIOGRAM REPORT [id number] BASHIR KIRKLAND 3. Valvular structures have normal structure and motion. 4. Doppler interrogation reveals no significant valvular insufficiency or stenosis. 5. No evidence of pericardial effusion or left ventricular thrombus. TRANSINT:[id number] Voice Confirmation ID: [id number] DOCUMENT ID: [id number] at 0928 CC: [id number] DICTATION DATE: 06/25/19 1509 FIELD LABORATORY OPERATOR: 06/26/19 0032 ADM IN [place] [id number] [place] [address]
--- NOTE | 2019-06-29 09:30 | NUR ---
PT HAS BEEN UP TO WALK WITH PHYSICAL THERAPY. NO DISTRESS. GAIT STEADY
--- NOTE | 2019-06-29 11:40 | NUR ---
LUNCH TRAY PROVIDED TO PATIENT. DENIES ANY ADDITIONAL NEEDS. SAYS ALSO BRINGING HIM SOMETHING FOR LUNCH.
--- NOTE | 2019-06-29 13:24 | NUR ---
Nutrition Follow-up: Pt reports good appetite/PO intake but does not like hospital food; family bringing food from outside. Diet: Cardiac Wt: 243.6# Last BM: 06/24 per pt Labs noted: Ca 8.0, Alb 2.3 Meds noted: Lasix, KDur, Senokot, Colace -Continue current diet as tolerated. -RD following.
--- NOTE | 2019-06-29 14:00 | NUR ---
PT RESTING QUIETLY. CALL LIGHT IN REACH.
--- NOTE | 2019-06-29 15:00 | NUR ---
REASSESSMENT COMPLETE. PT RESTING QUIETLY IN THE DARK. DENIES ANY ADDITIONAL NEEDS. CALL LIGHT IN REACH.
--- NOTE | 2019-06-29 18:43 | NUR ---
PT ASKING FOR PAIN MEDICATION. LET HIM KNOW HE COULD HAVE ANOTHER DOSE IN ONE HOUR.
--- NOTE | 2019-06-29 19:07 | MORECARE ---
CASE MANAGEMENT DISCHARGE SUMMARY PATIENT: BASHIR KIRKLAND REZA UNIT: [id number] ADM DATE: 06/25/19 AGE: 54 : 69 SEX: M ROOM/BED: D[facility] AUTHOR: DAVID CARLSON PHYSICIAN: REFERRING PHYSICIAN: BRIANNA MAZARIEGOS MD DATE OF SERVICE: 06/29/19 Discharge Plan Patient Name: BASHIR KIRKLAND Facility: [facility]:[place] : 1965 Planned Disposition: Anticipated Discharge Date: Discharge Date: Expected LOS: Initial Reviewer: [email or web address] Initial Review Date: 06/25/2019 Generated: 06/29/19 8:07 pm Comments DCP- Discharge Planning Updated by [email or web address]: Nalini Cristina on 06/29/19 6:[address] Patient Name: BASHIR KIRKLAND Admission Status: Elective Accout number: [id number] Admission Date: 06-25-2019 : 1965 Admission Diagnosis: Attending: BRIANNA MAZARIEGOS Current LOS: 4 Anticipated DC Date: Planned Disposition: Primary Insurance: [employer] POS FLEXCARE Discharge Planning Comments: CM met with patient at bedside after explaining CM role and obtaining verbal consent. Patient lives at home with his Renée where he is independent with his care and plans to return there upon discharge. Patient feels this would be a safe discharge. CM discussed availability / needs of home health and medical equipment. Patient may need walk test if still requiring 02 @ d/c. Patient denies any discharge needs at this time. Patient states he will have his family drive him home upon discharge. CM will continue to follow and assist as needed with discharge planning / needs. Smoke And Flame Specialist: Nalini Cristina DCPIA - Discharge Planning Initial Assessment Updated by [email or web address]: Nalini Cristina on 06/29/19 7:05 pm * Is the patient Alert and Oriented? Yes * How many steps to enter\exit or inside your home? * PCP Stuart Raines * Pharmacy [facility] * Preadmission Environment Home with Family * ADLs Independent * List name and contact numbers for known caregivers / representatives who currently or will assist patient after discharge: Renée Kirkland - spouse - [phone] * Verbal permission to speak to the caregivers and representatives has been obtained from the patient. No * Community resources currently utilized None * Additional services required to return to the preadmission environment? No * Can the patient safely return to the preadmission environment? Yes * Has this patient been hospitalized within the prior 30 days at any hospital? No Patient Name: BASHIR KIRKLAND Page [phone] at 1907 All edits/amendments must be made on the electronic document DICTATION DATE: 06/29/191906 BRUSHER: ARISTIDES 06/29/191906 RPT#: [id number] DC DATE: STATUS: ADM IN [facility] [address] [place] [address] END OF REPORT
--- NOTE | 2019-06-29 19:20 | NUR ---
SHIFT ASSESSMENT COMPLETE. PATIENT SITTING UP IN CHAIR AND DENIES ANY NEEDS AT THIS TIME. CALL LIGHT WITHIN REACH, BED IN LOW POSITION.
[2019-06-30] VITALS (23 sets, daily range): BP systolic 102–136; BP diastolic 46–78
--- NOTE | 2019-06-30 02:45 | NUR ---
PATIENT UP TO BATHROOM WITHOUT ASSIST, GAIT IS STEADY. CALL LIGHT WITHIN REACH, BED IN LOW POSITION.
[2019-06-30 06:52] LABS: HEMATOCRIT 34.9 % (42.0-54.0); HEMOGLOBIN 11.4 g/dL (13.5-17.5); MCH 31.7 pg (26.0-34.0); MCHC 32.7 g/dL (31.0-37.0); MCV 96.9 fL (80.0-100.0); MEAN PLATELET VOLUME 10.7 fL (7.4-10.4); RBC 3.6 10x6/uL (4.20-6.10); RDW 13.3 % (11.5-14.5)
[2019-06-30 06:57] LABS: ALBUMIN 2.4 g/dL (3.4-5.0); ALKALINE PHOSPHATASE 83 U/L (46-116); BILIRUBIN - TOTAL 0.55 mg/dL (0.2-1.3); CALC OSMOLALITY 277 mosm/kg (275-300); CALCIUM 8.4 mg/dL (8.5-10.1); CARBON DIOXIDE 29.7 mmol/L (21.0-32.0); CHLORIDE - SERUM 102 mmol/L (98-107); GLUCOSE 122 mg/dL (74-106); PROTEIN - SERUM 6.4 g/dL (6.4-8.2); SODIUM 138 mmol/L (136-145); UREA NITROGEN 16 mg/dL (7-18); eGFR NON AFRICAN AMERICAN 83 mL/min (90-120)
[2019-06-30 06:58] LABS: ALT (SGPT) 55 U/L (10-68)
--- NOTE | 2019-06-30 08:10 | NUR ---
SHIFT ASSESSMENT COMPLETE. BREAKFAST TRAY PROVIDED. MORNING MEDICATIONS GIVEN. NO NEEDS VOICED. CALL LIGHT IN REACH.
--- NOTE | 2019-06-30 13:48 | NUR ---
RIGHT IJ CENTRAL LINE REMOVED. TIP INTACT. NO BLEEDING. PT RESTING IN BED AT THIS TIME.
--- NOTE | 2019-06-30 14:58 | NUR ---
TPM WIRES REMOVED BY DR MAZARIEGOS NURSES.
--- NOTE | 2019-06-30 19:20 | NUR ---
SHIFT ASSESSMENT COMPLETE. PATIENT DENIES ANY NEEDS. CALL LIGHT WITHIN REACH, BED IN LOW POSITION.
[2019-07-01] VITALS (14 sets, daily range): BP systolic 87–144; BP diastolic 37–89
--- NOTE | 2019-07-01 02:03 | NUR ---
BIPAP IS ALARMING FREQUENTLY DUE TO NOT SEALING AROUND FACE BECAUSE OF [place] AND [place]. PATIENT DENIES ANY NEEDS AT THIS TIME. STATES HE IS NOT SLEEPING WELL. CALL LIGHT WITHIN REACH, BED IN LOW POSITION.
--- NOTE | 2019-07-01 02:10 | NUR ---
PATIENT REMOVED BIPAP DUE TO IT ALARMING AND DECLINES TO WEAR IT AT THIS TIME. O2 REPLACED VIA NC AT 2L/MIN SPO2 95% ON RA.
[2019-07-01] MEDS ORDERED: AMIODARONE HCL200 MG PO (09:32)
[2019-07-01] MEDS ORDERED: ASPIRIN EC81 M1 PO (09:33)
[2019-07-01] MEDS ORDERED: COLACE100 MG PO (09:34)
--- NOTE | 2019-07-01 11:03 | NUR ---
Nutrition Follow-up: POD 6 CABG. Good PO intake. Diet: Cardiac PO intake: 75-100% Wt: 237# No BMs recorded Labs reviewed Meds noted: Senokot Colace -Continue current diet as tolerated. -RD following.
--- NOTE | 2019-07-01 11:05 | NUR ---
CALL RECEIVED FROM [employer]. PERMISSION RECEIVED FROM PATIENT TO GIVE OUT INFORMATION. AGENT ASKING OF PT WAS GOING TO BE TRANSFERRED OUT OF ICU. INFORMED AGENT THAT PT WILL BE DISCHARGED FROM CVICU TO GO HOME. AGENT SPOKE WITH PATIENT WELL.
--- NOTE | 2019-07-01 14:25 | MORECARE ---
CASE MANAGEMENT DISCHARGE SUMMARY PATIENT: BASHIR KIRKLAND REZA UNIT: [id number] ADM DATE: 06/25/19 AGE: 54 : 69 SEX: M ROOM/BED: D[facility] AUTHOR: DAVID CALRSON PHYSICIAN: REFERRING PHYSICIAN: BRIANNA MAZARIEGOS MD DATE OF SERVICE: 07/01/19 Discharge Plan Patient Name: BASHIR KIRKLAND Facility: [facility]:[place] : 1965 Planned Disposition: Anticipated Discharge Date: Discharge Date: Expected LOS: Initial Reviewer: [email or web address] Initial Review Date: 06/25/2019 Generated: 07/01/19 3:25 pm Comments DCP- Discharge Planning Updated by [id number]: Nalini Cristina on 06/29/19 6:[address] Patient Name: BASHIR KIRKLAND Admission Status: Elective Accout number: [id number] Admission Date: 06-25-2019 : 1965 Admission Diagnosis: Attending: BRIANNA MAZARIEGOS Current LOS: 4 Anticipated DC Date: Planned Disposition: Primary Insurance: [employer] POS FLEXCARE Discharge Planning Comments: CM met with patient at bedside after explaining CM role and obtaining verbal consent. Patient lives at home with his Renée where he is independent with his care and plans to return there upon discharge. Patient feels this would be a safe discharge. CM discussed availability / needs of home health and medical equipment. Patient may need walk test if still requiring 02 @ d/c. Patient denies any discharge needs at this time. Patient states he will have his family drive him home upon discharge. CM will continue to follow and assist as needed with discharge planning / needs. Environmental Air Specialist: Nalini Cristina DCPIA - Discharge Planning Initial Assessment Updated by [email or web address]: Nalini Cristina on 06/29/19 7:05 pm * Is the patient Alert and Oriented? Yes * How many steps to enter\exit or inside your home? * PCP Stuart Raines * Pharmacy [facility] * Preadmission Environment Home with Family * ADLs Independent * List name and contact numbers for known caregivers / representatives who currently or will assist patient after discharge: Renée Kirkland - spouse - [phone] * Verbal permission to speak to the caregivers and representatives has been obtained from the patient. No * Community resources currently utilized None * Additional services required to return to the preadmission environment? No * Can the patient safely return to the preadmission environment? Yes * Has this patient been hospitalized within the prior 30 days at any hospital? No External Providers External Provider: OTHER-OTHER Next Contact Date: Service Request Date: Service Type: Resolution: Reviewer: Comments: Last DP export: 06/29/19 6:07 Patient Name: BASHIR KIRKLAND Page [phone] at 1425 All edits/amendments must be made on the electronic document DICTATION DATE: 07/01/19 142 INSTRUCTIONAL DESIGN CONSULTANT: ARISTIDES 07/01/19 142 RPT#: [id number] DC DATE: STATUS: ADM IN [facility] [address] [place] [address] END OF REPORT
[2019-07-01] MEDS ORDERED: PERCOCET 10-321 EAC1 PO (14:30)
--- NOTE | 2019-07-01 15:35 | NUR ---
DISCHARGE INSTRUCTIONS GIVEN TO PT. CARDIOLOGY APPOINTMENT SET UP FOR Jul AT 0930AM WITH DR. BARRIOS IN [place]. PT WHEELED OUT TO PERSONAL VEHICLE VIA WHEELCHAIR. PERSONAL BELONGINGS SENT WITH PATIENT.
--- NOTE | 2019-07-01 20:34 | MORECARE ---
CASE MANAGEMENT DISCHARGE SUMMARY PATIENT: BASHIR KIRKLAND REZA UNIT: [id number] ADM DATE: 06/25/19 AGE: 54 : 69 SEX: M ROOM/BED: D.[facility] AUTHOR: ALDO,DAVID PHYSICIAN: REFERRING PHYSICIAN: BRIANNA MAZARIEGOS MD DATE OF SERVICE: 07/01/19 Discharge Plan Patient Name: BASHIR KIRKLAND Facility: [facility]:[place] : 1965 Planned Disposition: Anticipated Discharge Date: Discharge Date: 07/01/2019 Expected LOS: Initial Reviewer: [email or web address] Initial Review Date: 06/25/2019 Generated: 07/01/19 9:34 pm Comments DCP- Discharge Planning Updated by [email or web address]: Nalini Cristina on 07/01/19 7:[address] CM received notice that patient will need nebulizer upon discharge. YARIEL signed for DME. CM contacted [facility] in [place] and faxed records. CM explained that patient would be discharging today. [facility] stated that DuoNeb would be delivered via UPS with overnight shipping. Nursing and RT to get patient duoneb for 2 days until shipment arrives. CM will continue to follow and assist as needed for discharge needs. DCP- Discharge Planning Updated by [email or web address]: Nalini Cristina on 06/29/19 6:[address] Patient Name: BASHIR KIRKLAND Admission Status: Elective Accout number: [id number] Admission Date: 06-25-2019 : 1965 Admission Diagnosis: Attending: BRIANNA MAZARIEGOS Current LOS: 4 Anticipated DC Date: Planned Disposition: Primary Insurance: [employer] POS FLEXCARE Discharge Planning Comments: CM met with patient at bedside after explaining CM role and obtaining verbal consent. Patient lives at home with his Renée where he is independent with his care and plans to return there upon discharge. Patient feels this would be a safe discharge. CM discussed availability / needs of home health and medical equipment. Patient may need walk test if still requiring 02 @ d/c. Patient denies any discharge needs at this time. Patient states he will have his family drive him home upon discharge. CM will continue to follow and assist as needed with discharge planning / needs. Entry Level Drafter: Nalini Cristina DCPIA - Discharge Planning Initial Assessment Updated by [email or web address]: Nalini Cristina on 06/29/19 7:05 pm * Is the patient Alert and Oriented? Yes * How many steps to enter\exit or inside your home? * PCP Stuart Raines * Pharmacy [facility] * Preadmission Environment Home with Family * ADLs Independent * List name and contact numbers for known caregivers / representatives who currently or will assist patient after discharge: Renée Kirkland - [facility] - [phone] * Verbal permission to speak to the caregivers and representatives has been obtained from the patient. No * Community resources currently utilized None * Additional services required to return to the preadmission environment? No * Can the patient safely return to the preadmission environment? Yes * Has this patient been hospitalized within the prior 30 days at any hospital? No Last DP export: 07/01/19 1:25 Patient Name: BASHIR KIRKLAND Page [phone] at 2033 All edits/amendments must be made on the electronic document DICTATION DATE: 07/01/192033 PANTOGRAPH WATCHER: ARISTIDES 07/01/192033 RPT#: [id number] DC DATE:07/01/19 STATUS: DIS IN [facility] [address] [place] [address] END OF REPORT
[2019-07-02 20:07] LABS: AEROBE ID Final report (())
--- NOTE | 2019-07-02 20:27 | MORECARE ---
CASE MANAGEMENT DISCHARGE SUMMARY PATIENT: BASHIR KIRKLAND ERZA UNIT: [id number] ADM DATE: 06/25/19 AGE: 54 : 69 SEX: M ROOM/BED: D.[facility] AUTHOR: ALDO,DAVID PHYSICIAN: REFERRING PHYSICIAN: BRIANNA MAZARIEGOS MD DATE OF SERVICE: 07/02/19 Discharge Plan Patient Name: BASHIR KIRKLAND Facility: [facility]:[place] : 1965 Planned Disposition: Anticipated Discharge Date: Discharge Date: 07/01/2019 Expected LOS: Initial Reviewer: [email or web address] Initial Review Date: 06/25/2019 Generated: 07/02/19 9:26 pm Comments DCP- Discharge Planning Updated by [email or web address]: Nalini Cristina on 07/01/19 7:[address] CM received notice that patient will need nebulizer upon discharge. YARIEL signed for DME. CM contacted [facility] in [place] and faxed records. CM explained that patient would be discharging today. [facility] stated that DuoNeb would be delivered via UPS with overnight shipping. Nursing and RT to get patient duoneb for 2 days until shipment arrives. CM will continue to follow and assist as needed for discharge needs. DCP- Discharge Planning Updated by [email or web address]: Nalini Cristina on 06/29/19 6:[address] Patient Name: BASHIR KIRKLAND Admission Status: Elective Accout number: [id number] Admission Date: 06-25-2019 : 1965 Admission Diagnosis: Attending: BRIANNA MAZARIEGOS Current LOS: 4 Anticipated DC Date: Planned Disposition: Primary Insurance: [employer] POS FLEXCARE Discharge Planning Comments: CM met with patient at bedside after explaining CM role and obtaining verbal consent. Patient lives at home with his Renée where he is independent with his care and plans to return there upon discharge. Patient feels this would be a safe discharge. CM discussed availability / needs of home health and medical equipment. Patient may need walk test if still requiring 02 @ d/c. Patient denies any discharge needs at this time. Patient states he will have his family drive him home upon discharge. CM will continue to follow and assist as needed with discharge planning / needs. Channel Cementer Insole Machine: Nalini Cristina DCPIA - Discharge Planning Initial Assessment Updated by [email or web address]: Nalini Cristina on 06/29/19 7:05 pm * Is the patient Alert and Oriented? Yes * How many steps to enter\exit or inside your home? * PCP Stuart Raines * Pharmacy [facility] * Preadmission Environment Home with Family * ADLs Independent * List name and contact numbers for known caregivers / representatives who currently or will assist patient after discharge: Renée Kirkland - [facility] - [phone] * Verbal permission to speak to the caregivers and representatives has been obtained from the patient. No * Community resources currently utilized None * Additional services required to return to the preadmission environment? No * Can the patient safely return to the preadmission environment? Yes * Has this patient been hospitalized within the prior 30 days at any hospital? No Last DP export: 07/01/19 7:34 Patient Name: BASHIR KIRKLAND Page [phone] at 2026 All edits/amendments must be made on the electronic document DICTATION DATE: 07/02/192025 LIFE INSURANCE SALES AGENT: ARISTIDES 07/02/192025 RPT#: [id number] DC DATE:07/01/19 STATUS: DIS IN [facility] [address] [place] [address] END OF REPORT
== END 2019-07-01 15:35 | disposition home or self-care (01) | DRG 235 ==
LOC: D.CVICU 06-25 05:00 → D.SDCHOLD 06-25 05:00 → D.CVICU 06-25 11:58
PROVIDERS: Internal Medicine Pulmonary Disease; ADMIT Thoracic Surgery (Cardiothoracic Vascular Surgery); ATTEND Thoracic Surgery (Cardiothoracic Vascular Surgery)
PROC: 021109W Bypass Coronary Artery, Two Arteries from Aorta with Autologous Venous Tissue, Open Approach (ICD-10-PCS; 2019-06-25)
PROC: 06BP0ZZ Excision of Right Saphenous Vein, Open Approach (ICD-10-PCS; 2019-06-25)
PROC: B24BZZ4 Ultrasonography of Heart with Aorta, Transesophageal (ICD-10-PCS; 2019-06-25)
PROC: 02100Z9 Bypass Coronary Artery, One Artery from Left Internal Mammary, Open Approach (ICD-10-PCS; principal; 2019-06-25 07:30)
DX: I25.10 Atherosclerotic heart disease of native coronary artery without angina pectoris (principal); J18.1 Lobar pneumonia, unspecified organism; D62 Acute posthemorrhagic anemia; J98.11 Atelectasis; K21.9 Gastro-esophageal reflux disease without esophagitis; Z72.0 Tobacco use; M19.90 Unspecified osteoarthritis, unspecified site; E78.5 Hyperlipidemia, unspecified; J44.9 Chronic obstructive pulmonary disease, unspecified; R53.81 Other malaise

== ENCOUNTER 2020-04-15 17:21 | Emergency (ER) | payer OTHER ==
[~2020-04-15] VITALS: Ht 182.9 cm; Wt 109.1 kg
[~2020-04-15 17:21] MED LIST changes: +AMIODARONE HCL200 MG PO; +ASPIRIN EC81 M1 PO; +BAYER CHEWABLE81 MG PO; +COLACE100 MG PO; +PERCOCET 10-321 EAC1 PO
[2020-04-15 17:36] VITALS: Ht 182.9 cm; Wt 109.1 kg
[2020-04-15 18:10] LABS: BASOPHILS 0.2 % (0-2); EOSINOPHILS 0.3 % (0-7); HEMATOCRIT 47.4 % (42.0-54.0); HEMOGLOBIN 15.7 g/dL (13.5-17.5); IMMATURE GRANULOCYTES 0.2 % (0-5); LYMPHOCYTES 13.9 % (15-50); MCH 31.2 pg (26.0-34.0); MCHC 33.1 g/dL (31.0-37.0); MCV 94.2 fL (80.0-100.0); MEAN PLATELET VOLUME 10.6 fL (7.4-10.4); MONOCYTES 11.7 % (2-11); NEUTROPHILS 73.7 % (40-80); PLATELET COUNT 240 10x3/uL (130-400); RBC 5.03 10x6/uL (4.20-6.10); RDW 13.7 % (11.5-14.5); WBC 11.5 10x3/uL (4.8-10.8)
[2020-04-15 18:18] LABS: APTT 27.2 SECONDS (22.8-39.4); INR 0.99 (0.85-1.17)
[2020-04-15 18:19] LABS: CALC OSMOLALITY 281 mosm/kg (275-300); CALCIUM 9.4 mg/dL (8.5-10.1); CARBON DIOXIDE 31.2 mmol/L (21.0-32.0); CHLORIDE - SERUM 103 mmol/L (98-107); CREATININE - SERUM 1.4 mg/dL (0.6-1.3); GLUCOSE 112 mg/dL (74-106); POTASSIUM - SERUM 4.2 mmol/L (3.5-5.1); SODIUM 141 mmol/L (136-145); UREA NITROGEN 12 mg/dL (7-18); eGFR NON AFRICAN AMERICAN 56 mL/min (90-120)
[2020-04-15 18:37] LABS: ALBUMIN 3.7 g/dL (3.4-5.0); ALKALINE PHOSPHATASE 74 U/L (30-120); ALT (SGPT) 24 U/L (10-68); BILIRUBIN - TOTAL 0.59 mg/dL (0.2-1.3); CKMB 0.1 U/L (0.0-3.6); CREATINE KINASE 44 UL (21-232); MAGNESIUM - SERUM 2.1 mg/dL (1.8-2.4); PROTEIN - SERUM 7.7 g/dL (6.4-8.2)
[2020-04-15 18:39] LABS: TROPONIN-I < 0.017 ng/mL (0.000-0.060)
[2020-04-15 21:30] VITALS: BP 109/48
== END 2020-04-15 21:54 | disposition home or self-care (01) ==
LOC: D.ER 17:21
DX: R07.9 Chest pain, unspecified (principal); I25.10 Atherosclerotic heart disease of native coronary artery without angina pectoris; R07.81 Pleurodynia; K21.9 Gastro-esophageal reflux disease without esophagitis